=== PATIENT | male | born 2000 | race Caucasian/White ===

== ENCOUNTER 2021-02-17 17:29 | Emergency (ER) | payer OTHER ==
[~2021-02-17] VITALS: Ht 195.6 cm; Wt 110.9 kg
[2021-02-17 18:28] LABS: BASO % 0.4 % (0.0-2.0); EOS # 0.4 (0.0-0.7); EOS % 5.7 % (0-4.0); GRAN # 3.7 (1.4-6.5); GRAN % 52.1 % (42.2-75.2); HEMATOCRIT 42.8 % (36.0-47.0); HEMOGLOBIN 15.3 g/dl (12.5-16.1); LYMPH # 2.2 (1.2-3.4); LYMPH % 31.9 % (20.0-51.0); MEAN CELL VOLUME 86 fl (80.0-95.0); MEAN CORPUSCULAR HEMOGLOBIN 31 pg (26.0-32.0); MEAN CORPUSCULAR HGB CONC 36 g/dl (33.0-37.0); MEAN PLATELET VOLUME 11.2 fl (7.4-10.4); MONO # 0.7 (0.1-0.6); MONO % 9.8 % (1.7-9.3); PLATELET COUNT 232 K/mm3 (130-400); RED BLOOD COUNT 4.99 M/mm3 (4.20-5.60); REDCELL DISTRIBUTION WIDTH-CV 12.2 % (11.5-14.5)
[2021-02-17 18:44] LABS: ALANINE AMINOTRANSFERASE 93 U/L (4-49); ALBUMIN 4.7 gm/dL (3.5-5.0); ALKALINE PHOSPHATASE 105 U/L (50-136); ANION GAP 10 mmol/L (7-16); AST,SGOT 76 U/L (15-37); BILIRUBIN,TOTAL 0.6 mg/dL (0.0-1.0); BLOOD UREA NITROGEN 23 mg/dL (9-20); CALCIUM 9.7 mg/dL (8.4-10.2); CARBON DIOXIDE 26 mmol/L (22-30); CHLORIDE 103 mmol/L (98-107); CREATININE, serum 1.23 (0.66-1.25); GLUCOSE 89 mg/dL (74-106); POTASSIUM 3.7 mmol/L (3.4-5.0); SODIUM 139 mmol/L (137-145); TOTAL PROTEIN 8.1 gm/dL (6.4-8.2)
[2021-02-17 18:48] LABS: C-REACTIVE PROTEIN < 0.5 mg/dL (0.0-0.9)
[2021-02-17 19:31] LABS: COLLECTION METHOD CLEAN CATCH
[2021-02-17 19:41] LABS: MUCOUS Present /lpf; PH 6 (5-8); SQUAMOUS EPITHELIAL None Seen /hpf; URINE APPEARANCE Clear; URINE BACTERIA None Seen /hpf; URINE BILIRUBIN Negative (NEGATIVE); URINE BLOOD Negative (NEGATIVE); URINE COLOR Yellow; URINE GLUCOSE Negative (NEGATIVE); URINE KETONE Negative (NEGATIVE); URINE LEUKOCYTE ESTERASE Negative (NEGATIVE); URINE NITRATE Negative (NEGATIVE); URINE PROTEIN(semi-quant) Negative (NEGATIVE); URINE RBC None Seen /hpf; URINE UROBILINOGEN Negative (NEGATIVE)
[2021-02-17 20:39] VITALS: TEMP 98.7
[2021-02-17 21:20] VITALS: BP 129/90; PULSE 68
== END 2021-02-17 21:20 | disposition home or self-care (01) ==
LOC: COL.ER 17:29 → SDCO 18:54 → COL.ER 21:20
PROVIDERS: Family Medicine
DX: K20.90 Esophagitis, unspecified without bleeding (principal); J45.909 Unspecified asthma, uncomplicated
CPT/HCPCS: C9113; J0330; J1100; J1200; J1885; J2405; J2704; J3010; J7030; J7120

== ENCOUNTER 2024-03-30 01:40 | Emergency (ER) | payer OTHER ==
[~2024-03-30] VITALS: Ht 193 cm; Wt 110.0 kg
[2024-03-30 01:44] VITALS: TEMP 97.6
[2024-03-30] MEDS ORDERED: NS 1,000 ML IV ONE (02:00)
[2024-03-30] MEDS ORDERED: diphenhydrAMINE 50 MG/ML 1 ML VIAL IV ONE (02:00)
[2024-03-30] MEDS ORDERED: Ketorolac 30 MG/ML VIAL IV ONE (02:00)
[2024-03-30] MEDS ORDERED: IMITREX50 MG PO (03:11)
[2024-03-30 03:28] VITALS: BP 121/63; PULSE 78
[2024-03-30] MEDS ORDERED: DOXYCYCLINE 10100 MG PO (03:47)
== END 2024-03-30 03:30 | disposition home or self-care (01) ==
LOC: COL.ER 01:40
DX: G43.909 Migraine, unspecified, not intractable, without status migrainosus (principal); J32.9 Chronic sinusitis, unspecified; Z88.1 Allergy status to other antibiotic agents
CPT/HCPCS: J1200; J1885; J2765; J7030